=== PATIENT | male | born 1985 | race Caucasian/White ===

== ENCOUNTER 2023-03-08 14:02 | Outpatient (CLI) | payer BC, OTHER, SELFPAY ==
[2023-03-08 14:40] VITALS: BP 136/94; PULSE 93; RESP 16; O2SAT 97
[2023-03-08 15:10] VITALS: BP 124/79; PULSE 81; RESP 16
[2023-03-08 15:40] VITALS: BP 119/82; PULSE 80; RESP 16; O2SAT 94
[2023-03-08 16:39] VITALS: BP 137/84; PULSE 81; RESP 16; O2SAT 98
== END 2023-03-08 16:40 | disposition home or self-care (01) ==
LOC: INF 14:09
PROVIDERS: PCP Family Medicine; Visit Provider Internal Medicine
DX: L50.1 Idiopathic urticaria (principal)
CPT/HCPCS: 96372; J2357

== ENCOUNTER 2023-04-05 14:08 | Outpatient (CLI) | payer BC, OTHER, SELFPAY ==
[2023-04-05 14:23] VITALS: BP 155/93; PULSE 101; RESP 18; O2SAT 98
[2023-04-05 14:53] VITALS: BP 133/71; PULSE 90; RESP 18; O2SAT 98
[2023-04-05 15:23] VITALS: BP 125/75; PULSE 81; RESP 18; O2SAT 96
[2023-04-05 15:53] VITALS: BP 126/84; PULSE 88; RESP 18; O2SAT 97
[2023-04-05 16:23] VITALS: BP 117/77; PULSE 76; RESP 18; O2SAT 97
== END 2023-04-05 16:23 | disposition home or self-care (01) ==
LOC: INF 14:08
PROVIDERS: Visit Provider Internal Medicine
DX: L50.1 Idiopathic urticaria (principal)
CPT/HCPCS: 96372; J2357

== ENCOUNTER 2023-05-03 13:36 | Outpatient (CLI) | payer BC, OTHER, SELFPAY ==
[2023-05-03 13:45] VITALS: BP 142/94; PULSE 84; RESP 16; TEMP 37.3; O2SAT 99
[2023-05-03 14:45] VITALS: BP 136/84; PULSE 75; RESP 17
[2023-05-03 15:45] VITALS: BP 123/56; PULSE 69; RESP 16; O2SAT 100
== END 2023-05-03 15:47 | disposition home or self-care (01) ==
LOC: INF 13:37
PROVIDERS: Visit Provider Internal Medicine
DX: L50.1 Idiopathic urticaria (principal)
CPT/HCPCS: 96372; J2357